=== PATIENT | female | born 1960 | race Caucasian/White ===

== ENCOUNTER 2017-02-15 00:05 | Emergency (ER) | payer OTHER ==
[2017-02-15 01:27] LABS: Hematocrit 41 % (35-47); Hemoglobin 13.6 g/dl (12.0-16.0); Mean Corpuscular HGB Conc 33 g/dl (31-36); Mean Corpuscular Hemoglobin 32 pg (27-31); Mean Corpuscular Volume 97 fL (80-97); Mean Platelet Volume 8 um3 (7.4-10.4); Red Blood Count 4.23 10^6/ul (4.0-5.4); Red Cell Distribution Width 15 % (10.5-15); White Blood Count 12.4 10^3/ul (3.5-10.8)
[2017-02-15 01:46] LABS: Albumin 4.2 g/dL (3.2-5.2); BUN/Creatinine Ratio 17.5 (8-20); Calcium 9.5 mg/dL (8.6-10.3); EGFR African American 95.4 (>60); EGFR Non-African American 74.2 (>60); Globulin 2.9 g/dL (2-4); Potassium 3.7 mmol/L (3.5-5.0); Total Bilirubin 0.3 mg/dL (0.2-1.0); Total Protein 7.1 g/dL (6.4-8.9)
[2017-02-15] MEDS ORDERED: Morphine INJ* 4 MG/ML 1 ML SYRINGE IV ONE (01:49)
[2017-02-15] MEDS ORDERED: Ketorolac INJ* 30 MG/ML 1 ML VIAL ONE (02:10)
[2017-02-15] MEDS ORDERED: HYDROmorphone* 1 MG/ML 1 ML SYR IV SLOW PU ONE (02:18)
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
[2017-02-15 05:11] VITALS: BP 109/64
--- NOTE | 2017-02-15 09:40 | RAD ---
INDICATION: Post reduction and splinting COMPARISON: Same day radiograph the left wrist acquired at 0042 hours TECHNIQUE: 3 views left wrist acquired at 0312 hours. REPORT: Evaluation is obscured by the patient's overlying splint. There is a displaced and impacted fracture of the distal left radius. On the lateral view the distal fracture fragment is displaced one bone width dorsal relative to the shaft of the radius. The remaining visualized bones appear to be intact and appropriately aligned IMPRESSION: Interval splinting of a displaced radial fracture as described above.
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
== END 2017-02-15 05:45 | disposition home or self-care (01) ==
LOC: ED 00:05
DX: R60.9 Edema, unspecified (principal); S52.502A Unspecified fracture of the lower end of left radius, initial encounter for closed fracture; W23.0XXA Caught, crushed, jammed, or pinched between moving objects, initial encounter; Y93.89 Activity, other specified; Y92.9 Unspecified place or not applicable
CPT/HCPCS: 36415; 80053; 85025; 99282; J1170; J1885; J2270

== ENCOUNTER 2017-02-23 08:41 | Day surgery (SDC) | payer OTHER ==
[~2017-02-23 08:41] MED LIST: Buffered Lidocaine 0.9% SYRIN* 5 ML/SYR SYRINGE INTRADERM ONE; Dexamethasone IV* 4 MG/ML 1 ML (4 MG) IV SLOW PU ONE; Famotidine IV* 10 MG/ML 2 ML (20 mg) IV ONE
[2017-02-23] MEDS ORDERED: Famotidine IV* 10 MG/ML 2 ML (20 mg) ONE (09:01)
[2017-02-23] MEDS ORDERED: Dexamethasone IV* 4 MG/ML 1 ML (4 MG) ONE (09:01)
[2017-02-23] MEDS ORDERED: Buffered Lidocaine 0.9% SYRIN* 5 ML/SYR SYRINGE ONE (09:01)
[2017-02-23] MEDS ORDERED: Clindamycin 900 MG IVPREMIX(* 900 MG/50 ML SDV IV ONE (09:01)
[2017-02-23] MEDS ORDERED: Bupivacaine 0.25% SDV* 30 ML ONE (12:18)
[2017-02-23] MEDS ORDERED: Propofol* 10 MG/ML 20 ML BTL IV PUSH ONE (12:45)
[2017-02-23] MEDS ORDERED: Lidocaine 2% PF * 5 ML VIAL ONE (12:45)
[2017-02-23] MEDS ORDERED: fentaNYL* 50 MCG/ML 2 ML VIAL (100 MCG VIAL) ONE ×2 (12:47→13:32)
[2017-02-23] MEDS ORDERED: Midazolam* 1 MG/ML 2 ML VIAL (2 MG) ONE (12:47)
[2017-02-23] MEDS ORDERED: KETAMINE HCL* 50 MG/ML 10 ML VIAL ONE (12:47)
[2017-02-23] MEDS ORDERED: fentaNYL* 50 MCG/ML 2 ML VIAL (100 MCG VIAL) IV PRN (12:49)
[2017-02-23] MEDS ORDERED: oxyCODONE/Acetamin 5/325 MG* TAB PO PRN (12:49)
[2017-02-23] MEDS ORDERED: PROCHLORPERAZINE INJ 5 MG/ML 2 ML VIAL IV PRN (12:49)
[2017-02-23] MEDS ORDERED: HYDROcodone/ACETAMIN 5-325 MG* 1 TAB PO PRN (12:49)
[2017-02-23] MEDS ORDERED: Ketorolac INJ* 30 MG/ML 1 ML VIAL ONE (13:05)
[2017-02-23] MEDS ORDERED: Phenylephrine IV* 40 MCG/ML 10 ML SYRINGE ONE (13:20)
[2017-02-23] MEDS ORDERED: Ondansetron INJ* 2 MG/ML VIAL ONE (13:40)
[2017-02-23] MEDS ORDERED: Labetalol IV* 5 MG/ML 20 ML VIAL ONE (13:42)
[2017-02-23] MEDS ORDERED: HYDROcodone/ACETAMIN 5-325 MG* 1 TAB ONE (15:24)
[2017-02-23 15:54] VITALS: BP 118/72
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
--- NOTE | 2017-02-24 20:24 | RAD ---
CPT II Codes: 6045F INDICATION: Left wrist ORIF TECHNIQUE: Intraoperative fluoroscopy was provided during ORIF of a fracture left radius. FINDINGS: 4 spot films depict application of a plate and screw fixator along the palmar margin of the distal left radius fracture.. Fluoroscopy time: 1.18 seconds IMPRESSION: As above.
--- NOTE | 2017-03-07 04:19 | OP ---
OPERATIVE NOTE:* ADDENDUM: Surgery on the left distal radius and not on the right. Otherwise, the operative note is correct. [id number]/[facility] #: [id number] MTDD
== END 2017-02-23 15:51 | disposition home or self-care (01) ==
LOC: OREAST 08:41
PROVIDERS: ATTEND Orthopaedic Surgery Hand Surgery
DX: S52.571A Other intraarticular fracture of lower end of right radius, initial encounter for closed fracture (principal); J45.909 Unspecified asthma, uncomplicated; F17.210 Nicotine dependence, cigarettes, uncomplicated; M06.9 Rheumatoid arthritis, unspecified; V28.4XXA Motorcycle driver injured in noncollision transport accident in traffic accident, initial encounter; Y92.410 Unspecified street and highway as the place of occurrence of the external cause
CPT/HCPCS: 76000; C1713; C1776; J1100; J1885; J2250; J2405; J2704; J3010

== ENCOUNTER 2018-01-16 16:56 | Emergency (ER) | payer OTHER ==
[2018-01-16 17:11] VITALS: BP 148/89
--- OUTSIDE RECORDS SUMMARY | 2018-01-16 17:33 | XMS REPORT ---
:1960 External Reference #:[id number] Author Organization [email or web address] Address [address] [place] [address] [place] [address] Phone [phone] Care Team Providers Name Role Phone Pattie Nuñez MD Primary Care Physician Unavailable Payers Type Date Identification Numbers Payment Provider Subscriber Commercial Policy Number: [id number] Edinnasim Fajardo Group Number: [id number] PayID: [id number] [place] [address] Problems Date Description Provider Status Onset: 02/17/2017 Closed fracture of distal end of Kai Stapleton MD Active radius Onset: 06/16/2017 Low back pain Kai Stapleton MD Active Onset: 06/16/2017 Lumbar radiculopathy Kai Stapleton MD Active Onset: 07/22/2017 Lumbosacral spondylosis without Ayan Gray MD Active myelopathy Onset: 07/22/2017 Thoracic and lumbosacral neuritis Ayan Gray MD Active Family History Date Family Member(s) Problem(s) Comments General Diabetes General Cancer General Arthritis General Arthritis, Osteo Mother Osteoporosis Social History Type Date Description Comments Lives With Alone Occupation Unemployed ETOH Use Drinks Alcoholic Beverages Rarely Smoking Patient has never smoked Recreational Drug Use Regularly uses Marijuana Daily Caffeine Consumes on average 5 cups of regular coffee per day Exercise Type/Frequency Exercises regularly Allergies, Adverse Reactions, Alerts Date Description Reaction Status Severity Comments 05/02/2014 Penicillin active Medications Medication Date Status Form Strength Qnty SIG Indications Ordering Provider Vitamin D3 10/14/ Active Tablets 1000Unit 30tab Take One Flynn 2016 s Tablet Daily Charanjit, M.D. Folic Acid 07/10/ Active Tablets 1mg 90tab take one M05.79 2015 s capsule/table Charanjit, t daily by M.D. mouth D3-1000 07/10/ Active Tablets 1000Unit 90tab take one 2015 s capsule/table Charanjit, t daily by M.D. mouth [id number] 07/10/ Active Chewtabs 1mg 90uni take one 2015 ts capsule/table Charanjit, t daily M.D. sublingually Methotrexate 07/10/ Active Tablets 2.5mg 90tab take 4 M05.79 2015 s tablets by Charanjit, mouth once M.D. weekly Advair Diskus / Active Aerosol 100-50mcg use one Unknown 0000 /Dose inhalation two times a day Claritin-D 24 / Active Tablets ER 10-240mg 1 by mouth Unknown Hour 0000 24HR every day Prevacid / Active Capsules 15mg 1 by mouth Unknown 0000 DR every day Prozac / Active Capsules 40mg take two Unknown 0000 capsules by mouth every day Estroven / Active Capsules Unknown Multi-Symptom 0000 Menopause Relief Maximum Strength Hydrocodone-Ac 02/23/ Hx Tablets 5-325mg 30tab 1 or 2 tabs Kai etaminophen 2017 - s by mouth Stapleton, 09/28/ every 6-8 MD 2018 hours as needed for pain Prevacid /00/ Hx Unknown - 2015 Claritin /00/ Hx Unknown - 2015 Prozac / Hx Unknown - 2015 Advair HFA / Hx Unknown - 2015 Medications Administered in Office Medication Date Status Form Strength Qnty SIG Indications Ordering Provider Triamcinolone 12/29/ Administered Injection Flynn (Kenalog) Gus Donohue M.D. Depomedrol 40MG 07/24/ Administered Injection Marely Juarez M.D. Vital Signs Date Vital Result Comment 12/29/2017 Height 61.5 inches 5'1.50" Weight 171.50 lb Heart Rate 88 /min BP Systolic 118 mmHg BP Diastolic 80 mmHg Pain Level 8 O2 % BldC Oximetry 98 % BMI (Body Mass Index) 31.9 kg/m2 10/09/2017 Height 61.5 inches 5'1.50" Heart Rate 67 /min BP Systolic 112 mmHg BP Diastolic 68 mmHg Respiratory Rate 16 /min Body Temperature 98.0 F Pain Level 1 09/28/2017 Height 61.5 inches 5'1.50" Weight 171.00 lb Heart Rate 81 /min BP Systolic Sitting 142 mmHg BP Diastolic Sitting 95 mmHg Respiratory Rate 14 /min Pain Level 4 BMI (Body Mass Index) 31.8 kg/m2 07/22/2017 Height 61.5 inches 5'1.50" Weight 160.00 lb Heart Rate 82 /min BP Systolic Sitting 140 mmHg BP Diastolic Sitting 80 mmHg Pain Level 2 BMI (Body Mass Index) 29.7 kg/m2 06/30/2017 Height 61.5 inches 5'1.50" Weight 160.00 lb Heart Rate 80 /min BP Systolic Sitting 134 mmHg BP Diastolic Sitting 78 mmHg Respiratory Rate 14 /min Pain Level 6 BMI (Body Mass Index) 29.7 kg/m2 06/22/2017 Height 61.5 inches 5'1.50" Weight 160.00 lb Heart Rate 76 /min BP Systolic Sitting 126 mmHg BP Diastolic Sitting 72 mmHg Pain Level 6 BMI (Body Mass Index) 29.7 kg/m2 06/16/2017 Height 61.5 inches 5'1.50" Weight 155.00 lb Heart Rate 74 /min Respiratory Rate 16 /min Body Temperature 98.1 F Pain Level 4 BMI (Body Mass Index) 28.8 kg/m2 04/15/2017 Height 61.5 inches 5'1.50" Weight 155.00 lb BP Systolic 126 mmHg BP Diastolic 74 mmHg Body Temperature 97.4 F Pain Level 4 BMI (Body Mass Index) 28.8 kg/m2 03/30/2017 Height 61.5 inches 5'1.50" Weight 162.38 lb Heart Rate 64 /min BP Systolic Sitting 110 mmHg BP Diastolic Sitting 70 mmHg Respiratory Rate 14 /min Pain Level 3 BMI (Body Mass Index) 30.2 kg/m2 03/20/2017 Heart Rate 60 /min BP Systolic Sitting 130 mmHg BP Diastolic Sitting 80 mmHg Body Temperature 97.1 F Pain Level 5 03/06/2017 Height 61.5 inches 5'1.50" Weight 165.00 lb Heart Rate 78 /min BP Systolic 122 mmHg BP Diastolic 80 mmHg Respiratory Rate 17 /min Body Temperature 97.8 F Pain Level 4 BMI (Body Mass Index) 30.7 kg/m2 02/17/2017 Height 61.5 inches 5'1.50" Weight 165.00 lb BP Systolic 120 mmHg BP Diastolic 88 mmHg Body Temperature 96.9 F Pain Level 7 BMI (Body Mass Index) 30.7 kg/m2 11/27/2016 Height 61.5 inches 5'1.50" Weight 163.25 lb Heart Rate 80 /min BP Systolic Sitting 140 mmHg BP Diastolic Sitting 80 mmHg Respiratory Rate 14 /min Pain Level 4 BMI (Body Mass Index) 30.3 kg/m2 08/13/2016 Height 61.5 inches 5'1.50" Weight 164.00 lb Heart Rate 84 /min BP Systolic Sitting 100 mmHg BP Diastolic Sitting 70 mmHg Respiratory Rate 14 /min Body Temperature 96.5 F Pain Level 4 BMI (Body Mass Index) 30.5 kg/m2 07/24/2016 Height 61.5 inches 5'1.50" Weight 165.00 lb Heart Rate 83 /min BP Systolic 107 mmHg BP Diastolic 74 mmHg BMI (Body Mass Index) 30.7 kg/m2 07/10/2016 Height 63 inches 5'3" Weight 165.00 lb Heart Rate 80 /min BP Systolic Sitting 110 mmHg BP Diastolic Sitting 60 mmHg Respiratory Rate 14 /min Body Temperature 96.4 F Pain Level 7 BMI (Body Mass Index) 29.2 kg/m2 05/22/2016 Height 63 inches 5'3" Weight 164.00 lb Heart Rate 80 /min BP Systolic Sitting 120 mmHg BP Diastolic Sitting 70 mmHg Respiratory Rate 14 /min Body Temperature 96.7 F Pain Level 8 BMI (Body Mass Index) 29.0 kg/m2 05/02/2014 Height 63 inches 5'3" Weight 156.00 lb Heart Rate 63 /min BP Systolic 104 mmHg BP Diastolic 63 mmHg BMI (Body Mass Index) 27.6 kg/m2 Results Test Date Test Result H/L Range Note Laboratory test finding 12/29/2017 Erythrocyte Sed Rate 25 mm/Hr 0-30 C Reactive Protein 2.66 mg/L < 5.00 1 CBC Auto Diff 12/29/2017 White Blood Count 9.4 10^3/uL 3.5-10.8 Red Blood Count 4.17 10^6/uL 4.00-5.40 Hemoglobin 13.1 g/dL 12.0-16.0 Hematocrit 40 % 35-47 Mean Corpuscular Volume 95 fL 80-97 Mean Corpuscular Hemoglobin 32 pg High 27-31 Mean Corpuscular HGB Conc 33 g/dL 31-36 Red Cell Distribution Width 15 % 10.5-15 Platelet Count 293 10^3/uL 150-450 Mean Platelet Volume 7.3 um3 Low 7.4-10.4 Abs Neutrophils 5.8 10^3/uL 1.5-7.7 Abs Lymphocytes 2.7 10^3/uL 1.0-4.8 Abs Monocytes 0.5 10^3/uL 0-0.8 Abs Eosinophils 0.3 10^3/uL 0-0.6 Abs Basophils 0.1 10^3/uL 0-0.2 Abs Nucleated RBC 0 10^3/uL Granulocyte % 61.9 % 38-83 Lymphocyte % 29.2 % 25-47 Monocyte % 4.8 % 0-7 Eosinophil % 3.4 % 0-6 Basophil % 0.7 % 0-2 Nucleated Red Blood Cells % 0 Comp Metabolic Panel 12/29/2017 Sodium 140 mmol/L 139-145 Potassium 4.8 mmol/L 3.5-5.0 Chloride 103 mmol/L 101-111 Co2 Carbon Dioxide 30 mmol/L 22-32 Anion Gap 7 mmol/L 2-11 Glucose 96 mg/dL 70-100 Blood Urea Nitrogen 19 mg/dL 6-24 Creatinine 0.87 mg/dL 0.51-0.95 BUN/Creatinine Ratio 21.8 High 8-20 Calcium 9.4 mg/dL 8.6-10.3 Total Protein 6.4 g/dL 6.4-8.9 Albumin 4.2 g/dL 3.2-5.2 Globulin 2.2 g/dL 2-4 Albumin/Globulin Ratio 1.9 1-3 Total Bilirubin 0.30 mg/dL 0.2-1.0 Alkaline Phosphatase 58 U/L 34-104 Alt 22 U/L 7-52 Ast 23 U/L 13-39 Egfr Non- 67.4 >60 Egfr 86.6 >60 2 Laboratory test finding 09/28/2017 Erythrocyte Sed Rate 25 mm/Hr 0-30 C Reactive Protein 2.80 mg/L < 5.00 3 CBC Auto Diff 09/28/2017 White Blood Count 10.5 10^3/uL 3.5-10.8 Red Blood Count 4.19 10^6/uL 4.0-5.4 Hemoglobin 13.3 g/dL 12.0-16.0 Hematocrit 40 % 35-47 Mean Corpuscular Volume 95 fL 80-97 Mean Corpuscular Hemoglobin 32 pg High 27-31 Mean Corpuscular HGB Conc 33 g/dL 31-36 Red Cell Distribution Width 15 % 10.5-15 Platelet Count 281 10^3/uL 150-450 Mean Platelet Volume 7 um3 Low 7.4-10.4 Abs Neutrophils 7.1 10^3/uL 1.5-7.7 Abs Lymphocytes 2.5 10^3/uL 1.0-4.8 Abs Monocytes 0.5 10^3/uL 0-0.8 Abs Eosinophils 0.3 10^3/uL 0-0.6 Abs Basophils 0.1 10^3/uL 0-0.2 Abs Nucleated RBC 0 10^3/uL Granulocyte % 67.7 % 38-83 Lymphocyte % 23.8 % Low 25-47 Monocyte % 4.9 % 0-7 Eosinophil % 2.9 % 0-6 Basophil % 0.7 % 0-2 Nucleated Red Blood Cells % 0 Comp Metabolic Panel 09/28/2017 Sodium 138 mmol/L 133-145 Potassium 4.3 mmol/L 3.5-5.0 Chloride 102 mmol/L 101-111 Co2 Carbon Dioxide 31 mmol/L 22-32 Anion Gap 5 mmol/L 2-11 Glucose 81 mg/dL 70-100 Blood Urea Nitrogen 13 mg/dL 6-24 Creatinine 0.73 mg/dL 0.51-0.95 BUN/Creatinine Ratio 17.8 8-20 Calcium 9.4 mg/dL 8.6-10.3 Total Protein 6.5 g/dL 6.4-8.9 Albumin 4.1 g/dL 3.2-5.2 Globulin 2.4 g/dL 2-4 Albumin/Globulin Ratio 1.7 1-3 Total Bilirubin 0.30 mg/dL 0.2-1.0 Alkaline Phosphatase 57 U/L 34-104 Alt 13 U/L 7-52 Ast 16 U/L 13-39 Egfr Non- 82.5 >60 Egfr 106.1 >60 4 Laboratory test finding 07/07/2017 Erythrocyte Sed Rate 22 mm/Hr 0-30 C Reactive Protein 3.58 mg/L < 5.00 5 CBC Auto Diff 07/07/2017 White Blood Count 9.4 10^3/uL 3.5-10.8 Red Blood Count 4.10 10^6/uL 4.0-5.4 Hemoglobin 13.0 g/dL 12.0-16.0 Hematocrit 39 % 35-47 Mean Corpuscular Volume 95 fL 80-97 Mean Corpuscular Hemoglobin 32 pg High 27-31 Mean Corpuscular HGB Conc 33 g/dL 31-36 Red Cell Distribution Width 15 % 10.5-15 Platelet Count 302 10^3/uL 150-450 Mean Platelet Volume 7 um3 Low 7.4-10.4 Abs Neutrophils 5.3 10^3/uL 1.5-7.7 Abs Lymphocytes 3.0 10^3/uL 1.0-4.8 Abs Monocytes 0.6 10^3/uL 0-0.8 Abs Eosinophils 0.4 10^3/uL 0-0.6 Abs Basophils 0.1 10^3/uL 0-0.2 Abs Nucleated RBC 0.01 10^3/uL Granulocyte % 56.7 % 38-83 Lymphocyte % 31.7 % 25-47 Monocyte % 6.6 % 1-9 Eosinophil % 4.1 % 0-6 Basophil % 0.9 % 0-2 Nucleated Red Blood Cells % 0.1 Comp Metabolic Panel 07/07/2017 Sodium 137 mmol/L 133-145 Potassium 4.3 mmol/L 3.5-5.0 Chloride 102 mmol/L 101-111 Co2 Carbon Dioxide 31 mmol/L 22-32 Anion Gap 4 mmol/L 2-11 Glucose 81 mg/dL 70-100 Blood Urea Nitrogen 16 mg/dL 6-24 Creatinine 0.84 mg/dL 0.51-0.95 BUN/Creatinine Ratio 19.0 8-20 Calcium 9.5 mg/dL 8.6-10.3 Total Protein 6.6 g/dL 6.4-8.9 Albumin 4.4 g/dL 3.2-5.2 Globulin 2.2 g/dL 2-4 Albumin/Globulin Ratio 2.0 1-3 Total Bilirubin 0.30 mg/dL 0.2-1.0 Alkaline Phosphatase 60 U/L 34-104 Alt 13 U/L 7-52 Ast 19 U/L 13-39 Egfr Non- 70.1 >60 Egfr 90.2 >60 6 CBC Auto Diff 02/15/2017 White Blood Count 12.4 10^3/uL High 3.5-10.8 Red Blood Count 4.23 10^6/uL 4.0-5.4 Hemoglobin 13.6 g/dL 12.0-16.0 Hematocrit 41 % 35-47 Mean Corpuscular Volume 97 fL 80-97 Mean Corpuscular Hemoglobin 32 pg High 27-31 Mean Corpuscular HGB Conc 33 g/dL 31-36 Red Cell Distribution Width 15 % 10.5-15 Platelet Count 309 10^3/uL 150-450 Mean Platelet Volume 8 um3 7.4-10.4 Abs Neutrophils 8.9 10^3/uL High 1.5-7.7 Abs Lymphocytes 2.5 10^3/uL 1.0-4.8 Abs Monocytes 0.7 10^3/uL 0-0.8 Abs Eosinophils 0.3 10^3/uL 0-0.6 Abs Basophils 0.1 10^3/uL 0-0.2 Abs Nucleated RBC 0.01 10^3/uL Granulocyte % 71.7 % 38-83 Lymphocyte % 19.9 % Low 25-47 Monocyte % 5.3 % 1-9 Eosinophil % 2.1 % 0-6 Basophil % 1.0 % 0-2 Nucleated Red Blood Cells % 0.1 Comp Metabolic Panel 02/15/2017 Sodium 136 mmol/L 133-145 Potassium 3.7 mmol/L 3.5-5.0 Chloride 103 mmol/L 101-111 Co2 Carbon Dioxide 27 mmol/L 22-32 Anion Gap 6 mmol/L 2-11 Glucose 82 mg/dL 70-100 Blood Urea Nitrogen 14 mg/dL 6-24 Creatinine 0.80 mg/dL 0.51-0.95 BUN/Creatinine Ratio 17.5 8-20 Calcium 9.5 mg/dL 8.6-10.3 Total Protein 7.1 g/dL 6.4-8.9 Albumin 4.2 g/dL 3.2-5.2 Globulin 2.9 g/dL 2-4 Albumin/Globulin Ratio 1.4 1-3 Total Bilirubin 0.30 mg/dL 0.2-1.0 Alkaline Phosphatase 55 U/L 34-104 Alt 10 U/L 7-52 Ast 16 U/L 13-39 Egfr Non- 74.2 >60 Egfr 95.4 >60 7 Laboratory test finding 11/24/2016 C Reactive Protein 2.64 mg/L < 5.00 8 Erythrocyte Sed Rate 23 mm/Hr 0-30 CBC Auto Diff 11/24/2016 White Blood Count 10.0 10^3/uL 3.5-10.8 Red Blood Count 4.30 10^6/uL 4.0-5.4 Hemoglobin 13.6 g/dL 12.0-16.0 Hematocrit 41 % 35-47 Mean Corpuscular Volume 94 fL 80-97 Mean Corpuscular Hemoglobin 32 pg High 27-31 Mean Corpuscular HGB Conc 34 g/dL 31-36 Red Cell Distribution Width 16 % High 10.5-15 Platelet Count 277 10^3/uL 150-450 Mean Platelet Volume 8 um3 7.4-10.4 Abs Neutrophils 6.5 10^3/uL 1.5-7.7 Abs Lymphocytes 2.5 10^3/uL 1.0-4.8 Abs Monocytes 0.5 10^3/uL 0-0.8 Abs Eosinophils 0.3 10^3/uL 0-0.6 Abs Basophils 0.1 10^3/uL 0-0.2 Abs Nucleated RBC 0 10^3/uL Granulocyte % 65.3 % 38-83 Lymphocyte % 24.9 % Low 25-47 Monocyte % 5.3 % 1-9 Eosinophil % 3.4 % 0-6 Basophil % 1.1 % 0-2 Nucleated Red Blood Cells % 0 Comp Metabolic Panel 11/24/2016 Sodium 138 mmol/L 133-145 Potassium 4.7 mmol/L 3.5-5.0 Chloride 103 mmol/L 101-111 Co2 Carbon Dioxide 30 mmol/L 22-32 Anion Gap 5 mmol/L 2-11 Glucose 94 mg/dL 70-100 Blood Urea Nitrogen 13 mg/dL 6-24 Creatinine 0.77 mg/dL 0.51-0.95 BUN/Creatinine Ratio 16.9 8-20 Calcium 9.1 mg/dL 8.6-10.3 Total Protein 6.6 g/dL 6.4-8.9 Albumin 4.2 g/dL 3.2-5.2 Globulin 2.4 g/dL 2-4 Albumin/Globulin Ratio 1.8 1-3 Total Bilirubin 0.30 mg/dL 0.2-1.0 Alkaline Phosphatase 53 U/L 34-104 Alt 11 U/L 7-52 Ast 16 U/L 13-39 Egfr Non- 77.8 >60 Egfr 100.1 >60 9 Laboratory test finding 08/11/2016 C Reactive Protein 2.82 mg/L < 5.00 10 Erythrocyte Sed Rate 22 mm/Hr 0-30 CBC Auto Diff 08/11/2016 White Blood Count 10.1 10^3/uL 3.5-10.8 Red Blood Count 4.59 10^6/uL 4.0-5.4 Hemoglobin 13.8 g/dL 12.0-16.0 Hematocrit 42 % 35-47 Mean Corpuscular Volume 93 fL 80-97 Mean Corpuscular Hemoglobin 30 pg 27-31 Mean Corpuscular HGB Conc 33 g/dL 31-36 Red Cell Distribution Width 14 % 10.5-15 Platelet Count 288 10^3/uL 150-450 Mean Platelet Volume 7 um3 Low 7.4-10.4 Abs Neutrophils 6.0 10^3/uL 1.5-7.7 Abs Lymphocytes 3.2 10^3/uL 1.0-4.8 Abs Monocytes 0.5 10^3/uL 0-0.8 Abs Eosinophils 0.3 10^3/uL 0-0.6 Abs Basophils 0.1 10^3/uL 0-0.2 Abs Nucleated RBC 0 10^3/uL Granulocyte % 59.3 % 38-83 Lymphocyte % 31.6 % 25-47 Monocyte % 4.8 % 1-9 Eosinophil % 3.2 % 0-6 Basophil % 1.1 % 0-2 Nucleated Red Blood Cells % 0 Comp Metabolic Panel 08/11/2016 Sodium 139 mmol/L 133-145 Potassium 4.2 mmol/L 3.5-5.0 Chloride 103 mmol/L 101-111 Co2 Carbon Dioxide 29 mmol/L 22-32 Anion Gap 7 mmol/L 2-11 Glucose 86 mg/dL 70-100 Blood Urea Nitrogen 11 mg/dL 6-24 Creatinine 0.80 mg/dL 0.51-0.95 BUN/Creatinine Ratio 13.8 8-20 Calcium 9.2 mg/dL 8.6-10.3 Total Protein 6.7 g/dL 6.4-8.9 Albumin 4.2 g/dL 3.2-5.2 Globulin 2.5 g/dL 2-4 Albumin/Globulin Ratio 1.7 1-3 Total Bilirubin 0.30 mg/dL 0.2-1.0 Alkaline Phosphatase 56 U/L 34-104 Alt 11 U/L 7-52 Ast 15 U/L 13-39 Egfr Non- 74.5 >60 Egfr 95.8 >60 11 Laboratory test 05/22/2016 C Reactive Protein 6.20 mg/L High < 5.00 12 finding Hepatitis Acute Panel 05/22/2016 Hepatitis C Antibody Nonreactive Nonreactive 13 Hepatitis A AB Igm Nonreactive Nonreactive 14 Hepatitis B Core AB Igm Nonreactive Nonreactive 15 Hepatitis B Surface Ag Nonreactive Nonreactive 16 Laboratory test finding 05/22/2016 Rheumatoid Factor 37 IU/mL <15 17 Cyclic Citrullinated Pep Igg <15.6 U 18 Hla B27 05/22/2016 Hla B27 Negative 19 Hla B27 Interp See Comment 20 Celiac Panel 05/22/2016 Tissue Transglutaminase IgA Ab <1.2 U/mL 21 Immunoglobulin A 256 mg/dL 61 - 356 Celiac Interpretation See Comment 22 Laboratory test finding 05/22/2016 Creatine Kinase(CK) 47 U/L 10-223 23 Anca AB Ser If 05/22/2016 C-Anca Negative Negative P-Anca Negative Negative 24 Vitamin D 1,25 And Vitamin 05/22/2016 Vitamin D Total 25(Oh) 26.6 ng/mL Low 30-50 25 D,2 Vitamin D, 1,25 Dihydroxy 61 pg/mL 18-78 26 Vitamin B12 And Folate Serum 05/22/2016 Vitamin B12 265 pg/mL 180-914 27 Folic Acid (Folate) > 20.00 ng/mL >3.99 28 1 Acute inflammation: >10.00 2 Because ethnic data is not always readily available, this report includes an eGFR for both -Americans and non- Americans. The National Kidney Disease Education Program (NKDEP) does not endorse the use of the MDRD equation for patients that are not between the ages of 18 and 70, are , have extremes of body size, muscle mass, or nutritional status, or are non- or non-. According to the National Kidney Foundation, irrespective of diagnosis, the stage of the disease is based on the level of kidney function: Stage Description GFR(mL/min/1.73 m(2)) 1 Kidney damage with normal or decreased GFR 90 2 Kidney damage with mild decrease in GFR 60-89 3 Moderate decrease in GFR 30-59 4 Severe decrease in GFR 15-29 5 Kidney failure <15 (or dialysis) 3 Acute inflammation: >10.00 4 Because ethnic data is not always readily available, this report includes an eGFR for both -Americans and non- Americans. The National Kidney Disease Education Program (NKDEP) does not endorse the use of the MDRD equation for patients that are not between the ages of 18 and 70, are , have extremes of body size, muscle mass, or nutritional status, or are non- or non-. According to the National Kidney Foundation, irrespective of diagnosis, the stage of the disease is based on the level of kidney function: Stage Description GFR(mL/min/1.73 m(2)) 1 Kidney damage with normal or decreased GFR 90 2 Kidney damage with mild decrease in GFR 60-89 3 Moderate decrease in GFR 30-59 4 Severe decrease in GFR 15-29 5 Kidney failure <15 (or dialysis) 5 Acute inflammation: >10.00 6 Because ethnic data is not always readily available, this report includes an eGFR for both -Americans and non- Americans. The National Kidney Disease Education Program (NKDEP) does not endorse the use of the MDRD equation for patients that are not between the ages of 18 and 70, are , have extremes of body size, muscle mass, or nutritional status, or are non- or non-. According to the National Kidney Foundation, irrespective of diagnosis, the stage of the disease is based on the level of kidney function: Stage Description GFR(mL/min/1.73 m(2)) 1 Kidney damage with normal or decreased GFR 90 2 Kidney damage with mild decrease in GFR 60-89 3 Moderate decrease in GFR 30-59 4 Severe decrease in GFR 15-29 5 Kidney failure <15 (or dialysis) 7 Because ethnic data is not always readily available, this report includes an eGFR for both -Americans and non- Americans. The National Kidney Disease Education Program (NKDEP) does not endorse the use of the MDRD equation for patients that are not between the ages of 18 and 70, are , have extremes of body size, muscle mass, or nutritional status, or are non- or non-. According to the National Kidney Foundation, irrespective of diagnosis, the stage of the disease is based on the level of kidney function: Stage Description GFR(mL/min/1.73 m(2)) 1 Kidney damage with normal or decreased GFR 90 2 Kidney damage with mild decrease in GFR 60-89 3 Moderate decrease in GFR 30-59 4 Severe decrease in GFR 15-29 5 Kidney failure <15 (or dialysis) 8 Acute inflammation: >10.00 9 Because ethnic data is not always readily available, this report includes an eGFR for both -Americans and non- Americans. The National Kidney Disease Education Program (NKDEP) does not endorse the use of the MDRD equation for patients that are not between the ages of 18 and 70, are , have extremes of body size, muscle mass, or nutritional status, or are non- or non-. According to the National Kidney Foundation, irrespective of diagnosis, the stage of the disease is based on the level of kidney function: Stage Description GFR(mL/min/1.73 m(2)) 1 Kidney damage with normal or decreased GFR 90 2 Kidney damage with mild decrease in GFR 60-89 3 Moderate decrease in GFR 30-59 4 Severe decrease in GFR 15-29 5 Kidney failure <15 (or dialysis) 10 Acute inflammation: >10.00 11 Because ethnic data is not always readily available, this report includes an eGFR for both -Americans and non- Americans. The National Kidney Disease Education Program (NKDEP) does not endorse the use of the MDRD equation for patients that are not between the ages of 18 and 70, are , have extremes of body size, muscle mass, or nutritional status, or are non- or non-. According to the National Kidney Foundation, irrespective of diagnosis, the stage of the disease is based on the level of kidney function: Stage Description GFR(mL/min/1.73 m(2)) 1 Kidney damage with normal or decreased GFR 90 2 Kidney damage with mild decrease in GFR 60-89 3 Moderate decrease in GFR 30-59 4 Severe decrease in GFR 15-29 5 Kidney failure <15 (or dialysis) 12 Acute inflammation: >10.00 13 Please check labs this week 14 Please check labs this week 15 Please check labs this week 16 Please check labs this week 17 Test Performed by: [place] [address] C[employer] Oven Attendant: Georgi Braden II, M.D., Ph.D. 18 REFERENCE VALUE <20.0 (Negative) Test Performed by: [place] [address] [employer] Attendant: Georgi Braden II, M.D., Ph.D. 19 REFERENCE VALUE Not Applicable 20 RESULT: HLA-B27 antigen was not detected. ADDITIONAL INFORMATION Method: Flow Cytometry Performing Laboratory CLIA# [id number] Test Performed by: [place] [address] Curing Oven Attendant: Georgi Braden II, M.D., Ph.D. 21 REFERENCE VALUE <4.0 (Negative) Test Performed by: [place] [address] [employer] Oven Attendant: Georgi Braden II, M.D., Ph.D. 22 Negative serology. Celiac disease unlikely. However, approximately 10% of patients with celiac disease are seronegative. Also, patients who are already adhering to a gluten-free diet may be seronegative. If celiac disease is highly clinically suspected, consider HLA-DQ typing. Test Performed by: [place] [address] Curing Oven Attendant: Georgi Braden II, M.D., Ph.D. 23 Please check labs this week 24 Negative for cANCA and pANCA patterns by immunofluorescence. ADDITIONAL INFORMATION This test was developed and its performance characteristics determined by [facility] in a manner consistent with CLIA requirements. This test has not been cleared or approved by the U.S. Food and Drug Administration. Test Performed by: [facility] [address] Curing Oven Attendant: Georgi Braden II, M.D., Ph.D. 25 Please check labs this week 26 ADDITIONAL INFORMATION This test was developed and its performance characteristics determined by [facility] in a manner consistent with CLIA requirements. This test has not been cleared or approved by the U.S. Food and Drug Administration. Test Performed by: [facility] [place] [id number] Curing Oven Attendant: Georgi Braden II, M.D., Ph.D. 27 Normal Range 180 to 914 Indeterminate Range 145 to 180 Deficient Range <145 28 Please check labs this week Procedures Date CPT Code Description Status 12/29/2017 21467 Admin Of Inj Completed 03/06/2017 48444 Short Arm Cast Application Completed 02/23/2017 64064 Open TX Distal Radial Intra-Articular FX W Fixation Of Completed 3 Or More 02/23/2017 65199 Open TX Distal Radial Intra-Articular FX W Fixation Of Completed 3 Or More 07/24/2016 55142 Inject Tendon Sheath Or Ligament Aponeurosis Eg Plantar Completed Fascia 03/21/2015 Bone Mineral Density Test Completed 05/02/2014 06007 Closed Treatment Radial Head Or Neck FX W/O Completed Manipulation Encounters Type Date Location Provider CPT E/M Dx Office Visit 10/09/2017 [facility] [place] [address] S52.502D 2:00p C.M.A. Office Visit 09/28/2017 [facility] [place] Donohue, [address] M05.79 2:40p Of [facility] Muñoz Z79.899 Office Visit 07/22/2017 2:00p [facility] [place] [address] M47.26 Of [facility] Gray MD M51.16 M54.5 Office Visit 06/30/2017 2:40p [facility] [place] Donohue 35514 M05.79 Of [facility] Muñoz M54.16 Z79.899 Office Visit 06/22/2017 3:00p [facility] [place] [address]771 M54.5 Of [facility] Gray MD M54.16 Office Visit 06/16/2017 2:00p [place] [address] S52.502D Of [place] M05.79 M54.5 M54.16 Office Visit 03/30/2017 3:00p [facility] [place] Donoh[place] 20887 M05.79 Of [facility] Mu[facility]oz Z79.899 M79.1 M47.812 Office Visit 02/17/2017 2:15p [facility] [address] S52.502A Kennedy SHAH Office Visit 11/27/2016 3:20p [facility] Flynn Donohue 22810 M05.79 Of [place] Muñoz Z79.899 M79.1 Office Visit 08/13/2016 1:40p [facility] Flynn Donohue 95564 M05.79 Of [place] Muñoz Z79.899 M79.1 M47.812 Office Visit 07/24/2016 1:30p [facility] 79610 M65.4 Kennedy Muñoz Office Visit 07/10/2016 3:20p [facility] Flynn Donohue M.D. 84439 M05.79 Of Miller M25.551 M79.1 M25.531 M47.812 Office Visit 05/22/2016 1:00p [facility] 85240 R76.0 Miller Muñoz M25.551 M54.5 M54.2 M79.1 R20.8 L13.0 Office Visit 05/02/2014 1:15p [facility] Alfredo M.D. 90502 813.03 C.MAngie 813.05 Plan of Care Future Appointment(s):03/31/2018 1:40 pm - Flynn Donohue M.D. at [facility]12/29/2017 - Flynn Donohue M.D.M05.79 Rheu arthritis w rheu factor mult site w/o org/sys involvFollow up:She has scarring over the left volar wrist which is improved from a prior fiwailQ79.899 Other retirement ( current) drug fmmtbzqZ22.26 Other spondylosis with radiculopathy, lumbar kixuorY46.551 Pain in right hipNew Therapy:Physical TherapyFollow up:Follow up in 2 or 3 months or sooner if needed
--- NOTE | 2018-01-16 22:22 | ED ---
Eusebio Barnett Natalie, scribed for Chuy Rincon MD on 01/16/18 at 1740 . Skin Complaint - HPI Summary HPI Summary: The patient is a 57 y/o F presenting to [facility] c/o erythematous poison sanjuana rash that started two days ago. The rash started out as two small spots on her abdomen, but has since spread all over the left side of her chest, axilla, and upper arm. She states that the rash is itchy but not painful. She spoke to her doctor, who gave her a cream, which did not help as it usually does. She was then prescribed an 11-day course of Prednisone, which she started yesterday. She has also used distilled white vinegar and ice for the itching and pain to much relief. She denies fever. - History of Current Complaint Chief Complaint: EDRashSkinAbscess Time Seen by Provider: 01/16/18 17:07 Stated Complaint: RASH Hx Obtained From: Patient Onset/Duration: Started Days Ago, Still Present Skin Exposure Onset/Duration: Days Ago Timing: Constant, Lasting Days Onset Severity: Mild Current Severity: Moderate Pain Intensity: 0 Pain Scale Used: 0-10 Numeric Skin Location: Chest, Arm Character: Redness Aggravating Symptom(s): Nothing Alleviating Symptom(s): Other: - itching cream, Prednisone, white vinegar, ice Associated Signs & Symptoms: Negative - fever, Rash - Allergy/Home Medications Allergies/Adverse Reactions: Allergies Allergy/AdvReac Type Severity Reaction Status Date / Time MS Penicillins [PCN] Allergy Intermediate Dizziness Verified 07/01/17 16:12 PMH/Surg Hx/FS Hx/Imm Hx Endocrine/Hematology History: Reports: Hx Anemia - maybe-occassionally Denies: Hx Diabetes Cardiovascular History: Denies: Hx Hypertension, Hx Pacemaker/ICD Respiratory History: Reports: Hx Asthma GI History: Reports: Hx Gastroesophageal Reflux Disease, Hx Hiatal Hernia Musculoskeletal History: Reports: Hx Arthritis - rheumatoid, Hx Bursitis, Hx Scoliosis, Hx Tendonitis Sensory History: Reports: Hx Contacts or Glasses - to read Denies: Hx Cataracts, Hx Glaucoma, Hx Hearing Aid Opthamlomology History: Reports: Hx Contacts or Glasses - to read Denies: Hx Cataracts, Hx Glaucoma Neurological History: Reports: Other Neuro Impairments/Disorders - HX OF BACK FX THAT WAS UNFOUNDED A CHILD, SPORTS RELATED INJURY AT THAT Psychiatric History: Reports: Hx Anxiety, Hx Depression Denies: Hx Panic Disorder - Cancer History Hx Chemotherapy: No - Surgical History Surgery Procedure, Year, and Place: 1996 right knee meniscus repair,ORIF LEFT WRIST Hx Anesthesia Reactions: No - Immunization History Date of Tetanus Vaccine: unk Date of Influenza Vaccine: none Infectious Disease History: No Infectious Disease History: Denies: Traveled Outside the [place] in Last 30 Days - Family History Known Family History: Negative: Cardiac Disease, Hypertension, Diabetes - Social History Alcohol Use: Occasionally Substance Use Type: Reports: Marijuana Substance Use Comment - Amount & Last Used: daily Smoking Status (MU): Never Smoked Tobacco Review of Systems Negative: Fever Positive: Rash - poison sanjuana rash on left chest and arm, erythema All Other Systems Reviewed And Are Negative: Yes Physical Exam - Summary Physical Exam Summary: Appearance: The patient is well-nourished in no acute distress and in no acute pain. Skin: The skin is warm and dry and skin color reflects adequate perfusion. There is a confluent rash on the left side of brachia, axilla, and phalanges. HEENT: The head is normocephalic and atraumatic. The pupils are equal and reactive. The conjunctivae are clear and without drainage. Nares are patent and without drainage. Mouth reveals moist mucous membranes and the throat is without erythema and exudate. The external ears are intact. The ear canals are patent and without drainage. The tympanic membranes are intact. Neck: The neck is supple with full range of motion and non-tender. There are no carotid bruits. There is no neck vein distension. Respiratory: Chest is non-tender. Lungs are clear to auscultation and breath sounds are symmetrical and equal. Cardiovascular: Heart is regular rate and rhythm. There is no murmur or rub auscultated. There is no peripheral edema and pulses are symmetrical and equal. Abdomen: The abdomen is soft and non-tender. There are normal bowel sounds heard in all four quadrants and there is no organomegaly palpated. Musculoskeletal: There is no back tenderness noted. Extremities are non-tender with full range of motion. There is good capillary refill. There is no peripheral edema or calf tenderness elicited. Neurological: Patient is alert and oriented to person, place and time. The patient has symmetrical motor strength in all four extremities. Cranial nerves are grossly intact. Deep tendon reflexes are symmetrical and equal in all four extremities. Psychiatric: The patient has an appropriate affect and does not exhibit any anxiety or depression. Triage Information Reviewed: Yes Vital Signs On Initial Exam: Initial Vitals Temp Pulse Resp BP Pulse Ox 98.1 F 95 17 148/89 95 01/16/18 17:08 01/16/18 17:08 01/16/18 17:08 01/16/18 17:08 01/16/18 17:08 Vital Signs Reviewed: Yes Diagnostics - Vital Signs Vital Signs Temp Pulse Resp BP Pulse Ox 01/16/18 17:08 98.1 F 95 17 148/89 95 - Laboratory Lab Statement: Any lab studies that have been ordered have been reviewed, and results considered in the medical decision making process. Course/Dx - Course Course Of Treatment: Ms. Fajardo presented to complaining of a very itchy rash on the left side of her thorax and her left axilla. She has had poison sanjuana many times and a prescription was called in for a tapering dose of prednisone by her PCP. She is to take 4 pills a day for 3 days 3 pills a day for 3 days etc. tapering down. She took 4 pills yesterday and 4 today. She was told to come in and see an M.D. in order for her PCP to prescribe. She was nontoxic and I agree that this looks like poison sanjuana. I think it tapering dose over 12 days is inadequate and I'm going to give her an additional prescription for the 4 pills a day at the beginning of the regimen and allow her to use this taper towards the end. - Diagnoses Provider Diagnoses: Poison sanjuana Discharge - Sign-Out/Discharge Documenting (check all that apply): Discharge/Admit/Transfer - Pt will be discharged home. - Discharge Plan Condition: Stable Disposition: HOME Prescriptions: predniSONE [Prednisone 20 MG TAB] 80 mg PO DAILY #20 tablet Patient Education Materials: Poison Sanjuana (ED) Referrals: Flynn Donohue MD [Primary Care Provider] - 2 Days Additional Instructions: Please take medication as prescribed. Follow up with your primary care provider in 2-3 days. Return to the emergency department for any new or worsening symptoms. - Billing Disposition and Condition Condition: STABLE Disposition: Home The documentation as recorded by the Eusebio avendano Natalie accurately reflects the service I personally performed and the decisions made by Sergey vee Richard L, MD.
== END 2018-01-16 17:35 | disposition home or self-care (01) ==
LOC: ED 16:56
DX: L23.7 Allergic contact dermatitis due to plants, except food (principal); K21.9 Gastro-esophageal reflux disease without esophagitis; J45.909 Unspecified asthma, uncomplicated; M06.9 Rheumatoid arthritis, unspecified
CPT/HCPCS: 99282

== ENCOUNTER 2018-08-24 06:59 | Emergency (ER) | payer MEDICARE, MEDICAID ==
[2018-08-24 08:07] VITALS: BP 159/81
--- NOTE | 2018-08-24 15:40 | ED ---
Upper Extremity Pain - HPI Summary HPI Summary: Patient is a 58-year-old female presenting to the ED with right shoulder pain. She states she's been diagnosed with tendinitis in the past and has had cortisone injections and has been using Aleve. This all with minimal relief. Over the past few days she states she has had pain to the scapular area radiating up into the right side of the neck and down to the ipsilateral arm with intermittent numbness and tingling. She states the area feels better when she presses down on the scapular area, worse with movement. She has tried a TENS unit in the past as well. She is unsure if she has tried muscle relaxers. She denies trying heat. She states she has good follow-ups with her physicians, was unsure if there was something more we could do. - History of Current Complaint Chief Complaint: EDShoulderClavicleInj Stated Complaint: RIGHT SHOULDER PAIN Time Seen by Provider: 08/24/18 07:26 Hx Obtained From: Patient Onset/Duration: Started Hours Ago Timing: Constant Severity Initially: Moderate Severity Currently: Moderate Pain Location: Shoulder Character: Aching Aggravating Factor(s): Movement, Lifting, Flexion, Extension, Internal/External Rotation Alleviating Factor(s): Rest, Ice Associated Signs & Symptoms: Positive: Numbness/Tingling. Negative: Swelling, Redness, Bruising, Diaphoresis, Nausea, Vomiting Related History: Dominant Hand Right - Risk Factors Non-Orthopedic Risk Factor: Negative DVT Risk Factors: Negative Septic Arthritis Risk Factor: Negative Compartment Syndrome Risk Factors: Pain - Allergies/Home Medications Allergies/Adverse Reactions: Allergies Allergy/AdvReac Type Severity Reaction Status Date / Time Penicillins AdvReac Intermediate Dizziness Verified 08/24/18 08:01 PMH/Surg Hx/FS Hx/Imm Hx Previously Healthy: Yes Endocrine/Hematology History: Reports: Hx Anemia - maybe-occassionally Denies: Hx Diabetes Cardiovascular History: Denies: Hx Hypertension, Hx Pacemaker/ICD Respiratory History: Reports: Hx Asthma GI History: Reports: Hx Gastroesophageal Reflux Disease, Hx Hiatal Hernia Musculoskeletal History: Reports: Hx Arthritis - rheumatoid, Hx Rheumatoid Arthritis, Hx Bursitis, Hx Scoliosis, Hx Tendonitis Sensory History: Reports: Hx Contacts or Glasses - to read Denies: Hx Cataracts, Hx Glaucoma, Hx Hearing Aid Opthamlomology History: Reports: Hx Contacts or Glasses - to read Denies: Hx Cataracts, Hx Glaucoma Neurological History: Reports: Other Neuro Impairments/Disorders - HX OF BACK FX THAT WAS UNFOUNDED A CHILD, SPORTS RELATED INJURY AT THAT Psychiatric History: Reports: Hx Anxiety, Hx Depression Denies: Hx Panic Disorder - Cancer History Hx Chemotherapy: No - Surgical History Surgery Procedure, Year, and Place: 1995 right knee meniscus repair,ORIF LEFT WRIST Hx Anesthesia Reactions: No - Immunization History Date of Tetanus Vaccine: unk Date of Influenza Vaccine: none Hx Pertussis Vaccination: No Immunizations Up to Date: Yes Infectious Disease History: No Infectious Disease History: Denies: Traveled Outside the [place] in Last 30 Days - Family History Known Family History: Positive: None Negative: Cardiac Disease, Hypertension, Diabetes - Social History Occupation: Employed Full-time Lives: With Family Alcohol Use: Occasionally Hx Substance Use: No Substance Use Type: Reports: Marijuana Substance Use Comment - Amount & Last Used: daily Smoking Status (MU): Never Smoked Tobacco Review of Systems Constitutional: Negative Negative: Fever, Chills, Fatigue, Skin Diaphoresis Negative: Palpitations, Chest Pain Negative: Shortness Of Breath, Cough Genitourinary: Negative Positive: no symptoms reported, see HPI Positive: Arthralgia, Myalgia Skin: Negative Neurological: Negative All Other Systems Reviewed And Are Negative: Yes Physical Exam Triage Information Reviewed: Yes Vital Signs On Initial Exam: Initial Vitals Temp Pulse Resp BP Pulse Ox 97.3 F 80 20 142/96 95 08/24/18 07:07 08/24/18 07:07 08/24/18 07:07 08/24/18 07:07 08/24/18 07:07 Vital Signs Reviewed: Yes Appearance: Positive: Well-Appearing, Well-Nourished Skin: Positive: Warm, Skin Color Reflects Adequate Perfusion Head/Face: Positive: Normal Head/Face Inspection Eyes: Positive: Normal, VALERIA, Conjunctiva Clear Neck: Positive: Supple, No Lymphadenopathy Respiratory/Lung Sounds: Positive: Clear to Auscultation, Breath Sounds Present Cardiovascular: Positive: RRR, Pulses are Symmetrical in both Upper and Lower Extremities Musculoskeletal: Positive: Pain @ - right shoulder pain Neurological: Positive: Sensory/Motor Intact, Alert, Oriented to Person Place, Time, Speech Normal Psychiatric: Positive: Normal, Affect/Mood Appropriate AVPU Assessment: Alert Diagnostics - Vital Signs Vital Signs Temp Pulse Resp BP Pulse Ox 08/24/18 08:06 97.5 F 63 18 159/81 97 08/24/18 07:07 97.3 F 80 20 142/96 95 - Laboratory Lab Statement: Any lab studies that have been ordered have been reviewed, and results considered in the medical decision making process. Course/Dx - Course Course Of Treatment: I discussed with the patient at length cervical radiculopathy and tendinitis of the shoulder. She does not require a x-ray as this appears to be tendinitis. There is pain to the scapular area radiating to the right side of the neck and down to the arm. The numbness and tingling is intermittent. She denies any color or temperature changes. Denies any injury. I have encouraged heat and gentle stretches. I have encouraged massage. Have given her a prescription for Flexeril as well as prednisone. She is to follow back up with her PCP. She is okay with this plan and discharge. - Diagnoses Differential Diagnosis/HQI/PQRI: Positive: Strain, Sprain Provider Diagnoses: Tendinitis, Cervical radiculopathy Discharge - Sign-Out/Discharge Documenting (check all that apply): Patient Departure Patient Received Moderate/Deep Sedation with Procedure: No - Discharge Plan Condition: Stable Disposition: HOME Prescriptions: Cyclobenzaprine TAB* [Flexeril TAB*] 10 mg PO BID PRN #10 tab PRN Reason: Spasms predniSONE TAB* [Deltasone TAB*] 50 mg PO DAILY #5 tab MDD 1 Patient Education Materials: Cervical Radiculopathy (ED), Tendinitis (ED) Referrals: Flynn Donohue MD [Primary Care Provider] - Additional Instructions: Moist heat to the area as much as possible Do not use ice Gentle stretches throughout the day after heating the area Massage is very important Please follow-up with your PCP possibly regarding further treatments Flexeril up to twice daily Do not drive or taking this medication Prednisone once daily in the morning, you may drive while taking this medication Aleve twice a day 4 days Do not exceed 4 days without taking a 2 day break - Billing Disposition and Condition Condition: STABLE Disposition: Home
== END 2018-08-24 08:06 | disposition home or self-care (01) ==
LOC: ED 06:59
DX: M75.91 Shoulder lesion, unspecified, right shoulder (principal); M54.12 Radiculopathy, cervical region; Z88.0 Allergy status to penicillin
CPT/HCPCS: 99281

== ENCOUNTER 2018-11-10 08:05 | Day surgery (SDC) | payer MEDICARE, MEDICAID ==
[~2018-11-10 08:05] MED LIST changes: -Buffered Lidocaine 0.9% SYRIN* 5 ML/SYR SYRINGE INTRADERM ONE; +Buffered Lidocaine 1% SYRIN* 1 ML/SYRINGE INTRADERM ONE; +Lactated Ringers 1000 ML Bag* 1,000 ML IV SCH
[2018-11-10] MEDS ORDERED: Dexamethasone IV* 4 MG/ML 1 ML (4 MG) ONE (08:19)
[2018-11-10] MEDS ORDERED: Famotidine IV* 10 MG/ML 2 ML (20 mg) ONE (08:19)
[2018-11-10] MEDS ORDERED: ceFAZolin 2 GM in NS PREMIX(*) 2 GM/100 ML BAG IVPB ONE (08:19)
[2018-11-10] MEDS ORDERED: Buffered Lidocaine 1% SYRIN* 1 ML/SYRINGE INTRADERM ONE (08:19)
[2018-11-10] MEDS ORDERED: Ondansetron INJ* 2 MG/ML VIAL ONE (08:57)
[2018-11-10] MEDS ORDERED: Propofol* 10 MG/ML 20 ML BTL ONE (08:57)
[2018-11-10] MEDS ORDERED: Lidocaine 2% PF * 5 ML VIAL ONE (08:57)
[2018-11-10] MEDS ORDERED: fentaNYL* 50 MCG/ML 2 ML VIAL (100 MCG VIAL) ONE ×3 (08:57→10:44)
[2018-11-10] MEDS ORDERED: Midazolam* 1 MG/ML 5 ML VIAL (5 MG) ONE (08:57)
[2018-11-10] MEDS ORDERED: Atracurium* 10 MG/ML 10 ML VIAL ONE (08:57)
[2018-11-10] MEDS ORDERED: Levalbuterol 0.63MG/3ML NEB* UNIT OF USE INH ONE ×2 (09:40→09:41)
[2018-11-10] MEDS ORDERED: ROPIVACAINE 5 MG/ML 30 ML BTL (0.5%) ONE (09:43)
[2018-11-10] MEDS ORDERED: DiMENhydriNATE IV* 50 MG/ML VIAL IV PUSH PRN (10:46)
[2018-11-10] MEDS ORDERED: Naloxone* 0.4 MG/ML 1 ML VIAL IV PRN (10:46)
[2018-11-10] MEDS ORDERED: Ondansetron INJ* 2 MG/ML VIAL IV PRN (10:46)
[2018-11-10] MEDS ORDERED: fentaNYL* 50 MCG/ML 2 ML VIAL (100 MCG VIAL) IV PRN (10:46)
[2018-11-10] MEDS ORDERED: oxyCODONE/Acetamin 5/325 MG* TAB PO PRN (10:46)
[2018-11-10] MEDS ORDERED: HYDROmorphone INJ1* 1 MG/ML SYRINGE IV PRN (10:46)
--- NOTE | 2018-11-10 13:59 | OP ---
OPERATIVE REPORT: DATE OF OPERATION: 11/10/18 - [facility] DATE OF : 62 SURGEON: Erick Sharma MD. ASSISTANTS: STEW Stephens. ANESTHESIOLOGIST: Dr. Garrison. ANESTHESIA: General with interscalene block. PRE-OP DIAGNOSIS: Right shoulder high-grade partial-thickness tear of the rotator cuff with biceps tendinitis. POST-OP DIAGNOSIS: Right shoulder high-grade partial-thickness tear of the rotator cuff with biceps tendinitis. OPERATIVE PROCEDURE: 1. Right shoulder arthroscopy with extensive glenohumeral debridement including biceps tenotomy, debridement of the anterior, posterior, superior labrum. 2. Subacromial decompression acromioplasty. 3. Rotator cuff repair using Regeneten patch. COMPLICATIONS: None. ESTIMATED BLOOD LOSS: Minimal. INDICATIONS: Mame Fajardo is a 58-year-old female with persistent shoulder pain refractory to conservative management. She also has rheumatoid arthritis. She has failed conservative management including physical therapy, anti- inflammatories and has elected to proceed with surgical treatment. MRI of the shoulder was done that demonstrated partial-thickness tearing of the rotator cuff. Risks and benefits of the surgery were discussed at length and included, but are not limited to bleeding, infection; damage to nerves, vessels, surrounding structures; wound nonhealing, persistent pain, need for further surgery, scarring, stiffness, incomplete relief of symptoms, risks of anesthesia. DESCRIPTION OF PROCEDURE: The patient was greeted in the preoperative area by the attending surgeon. Correct extremity was marked and consent was confirmed. The patient underwent interscalene nerve block by the anesthesiologist, after which she was brought back to the operating suite where she was placed in supine position on the operating table. She then underwent general anesthesia and endotracheal intubation, after which she was placed in left lateral decubitus position. An axillary roll was placed. All bony prominences were padded. She was secured with a pegboard. The right shoulder was prepped and draped in the usual sterile fashion beginning with chlorhexidine soap, scrub, alcohol wipe, and a final prep with ChloraPrep. After appropriate surgical pause indicating side, site, procedure, and administration of antibiotics, the standard posterolateral portal was made sharply with an 11-blade. Scope was introduced into the joint and the joint was examined. There were abundant synovitic changes. The biceps had a SLAP tear. The subscap was intact. The undersurface of the supraspinatus had significant high-grade partial-thickness tearing. There was chondrosis particularly in the posterior aspect of the humeral head as well as in the glenoid itself with grade 2 changes, small area of grade 3 change. The anterior portal was made in an outside-in fashion. Shaver was used to debride back the abundant synovitis and fraying of the anterior, posterior, and superior labrum. Biceps was then tenotomized for later tenodesis. The undersurface of the supraspinatus was debrided using the shaver. The inferior recess was intact. Once this portion was complete, all fluid and debris was removed from this portion of the case and attention was directed to the subacromial space. With the scope positioned in subacromial space, lateral portal was made in an outside-in fashion. Shaver was used to debride back the abundant synovitic and thick bursa that was present. Most of this was hyperemic. The shaver and electrocautery device were used to maintain hemostasis at all times. Shaver was used to debride back the bursa. The undersurface of the acromion was skeletonized. This revealed an anterolateral spur that was hooked. The 4-0 oval edilma was then used to do an acromioplasty. Once this was done, all the debris was removed and attention was directed to the rotator cuff. The cuff was probed and found to be intact. The decision was made to use a Regeneten patch to treat this as a rotator cuff repair using a Regeneten patch. The Regeneten patch was brought into the field. Through a separate stab incision, a cannula was placed to facilitate medial anchor placement. Once it was appropriately positioned, medial karthikeyan were placed through the rotator cuff. This helped secure it medially. Then laterally, PEEK karthikeyan were then used to attach to the bone. The patch appeared to be well positioned. The shoulder was taken through gentle range of motion and was found to be intact. The wounds were then copiously irrigated with sterile saline. The portals were closed with 3-0 nylon. Sterile dressings were applied as well as a regular sling. She was awoken from anesthesia and transferred to the PACU in stable condition. POSTOPERATIVE PLAN: She will be nonweightbearing, but she will start range of motion and physical therapy right away. She will be discharged on pain medication. DVT prophylaxis was considered, but deferred due to no previous personal or family history. I will see her back in 10 to 14 days. [id number]/[facility] #: [id number] JOHN
[2018-11-10 14:50] VITALS: BP 119/71
== END 2018-11-10 16:08 | disposition home or self-care (01) ==
LOC: OR 08:05
PROVIDERS: ATTEND Orthopaedic Surgery
DX: M75.111 Incomplete rotator cuff tear or rupture of right shoulder, not specified as traumatic (principal); M75.21 Bicipital tendinitis, right shoulder; M05.79 Rheumatoid arthritis with rheumatoid factor of multiple sites without organ or systems involvement; G89.18 Other acute postprocedural pain; J45.909 Unspecified asthma, uncomplicated; K21.9 Gastro-esophageal reflux disease without esophagitis; F41.8 Other specified anxiety disorders
CPT/HCPCS: C1713; J0690; J1100; J2250; J2405; J2704; J2795; J3010

== ENCOUNTER 2020-08-28 08:00 | Inpatient (IN) ==
[~2020-08-28 08:00] MED LIST changes: +Buffered Lidocaine 1% SYRIN 1 ml INTRADERM ONE; -Buffered Lidocaine 1% SYRIN* 1 ML/SYRINGE INTRADERM ONE; -Dexamethasone IV* 4 MG/ML 1 ML (4 MG) IV SLOW PU ONE; -Famotidine IV* 10 MG/ML 2 ML (20 mg) IV ONE; -Lactated Ringers 1000 ML Bag* 1,000 ML IV SCH; +Lactated Ringers 1000 ml BAG 1,000 ML IV SCH
[2020-08-28] MEDS ORDERED: Buffered Lidocaine 1% SYRIN 1 ml INTRADERM ONE (13:20)
[2020-08-28] MEDS ORDERED: Clindamycin 900 MG/D5W BAG 900 MG/50 ML BAG IVPB ONE (13:20)
[2020-08-28] MEDS ORDERED: Dexamethasone IV 4 MG/ML VIAL 1 ml VIAL ONE (13:49)
[2020-08-28] MEDS ORDERED: fentaNYL 250 mcg/5 ml 50 MCG/ML 5 ml VIAL (250 MCG) ONE (13:49)
[2020-08-28] MEDS ORDERED: Rocuronium 50 mg VIAL 10 mg/ml 5 ml VIAL (50 mg) ONE (13:49)
[2020-08-28] MEDS ORDERED: Propofol 10 MG/ML 20 ML BTL ONE (13:49)
[2020-08-28] MEDS ORDERED: Lidocaine 2% PF 5 ML VIAL ONE (13:49)
[2020-08-28] MEDS ORDERED: Ondansetron 4 mg VIAL 2 MG/ML 2 ml VIAL ONE (13:49)
[2020-08-28] MEDS ORDERED: Midazolam 2 mg/2 ml VIAL 1 mg/ml 2 ml VIAL (2 mg) ONE (13:49)
[2020-08-28] MEDS ORDERED: ROPIVACAINE 5 MG/ML 30 ML BTL (0.5%) ONE (14:00)
[2020-08-28] MEDS ORDERED: Phenylephrine 40 mcg/mL 10mL (400mcg) SYRINGE ONE ×2 (14:25→16:05)
[2020-08-28] MEDS ORDERED: HYDROmorphone 1 MG/1 ML SYRINGE ONE ×2 (15:02→17:22)
[2020-08-28] MEDS ORDERED: Ondansetron ODT 4 mg TAB 4 MG TAB PO PRN (15:16)
[2020-08-28] MEDS ORDERED: diPHENhydraMINE IV 50 MG/ML 1 ml VIAL (BENADRYL) IV PRN ×2 (15:16→17:03)
[2020-08-28] MEDS ORDERED: Magnesium Hydroxide LIQ 30 ML UDC PO PRN (15:16)
[2020-08-28] MEDS ORDERED: Lactulose 30 ml UDC PO PRN (15:16)
[2020-08-28] MEDS ORDERED: Ondansetron 4 mg VIAL 2 MG/ML 2 ml VIAL IV PRN (15:16)
[2020-08-28] MEDS ORDERED: diPHENhydraMINE 25 mg TAB PO PRN (15:16)
[2020-08-28] MEDS ORDERED: Morphine 2 MG/ML SYRINGE IV PRN (15:16)
[2020-08-28] MEDS ORDERED: Acetaminophen IV 1 GM/100ML 100 ML ONE (16:16)
[2020-08-28] MEDS ORDERED: diPHENhydraMINE IV 50 MG/ML 1 ml VIAL (BENADRYL) ONE (17:03)
[2020-08-28] MEDS ORDERED: Naloxone 0.4 mg VIAL 0.4 mg/ml 1 ml VIAL IV PRN ×2 (17:03→17:23)
[2020-08-28] MEDS: HYDROmorphone 1 MG/1 ML SYRINGE IV PRN ×4 (17:28→18:45)
[2020-08-28] MEDS: Lactated Ringers 1000 ml BAG 1,000 ML IV SCH (19:27)
[2020-08-28] MEDS: oxyCODONE/Acetamin 5/325 mg TAB PO PRN (22:17)
[2020-08-28] MEDS: Magnesium Hydroxide LIQ 30 ML UDC PO SCH (22:19)
[2020-08-28] MEDS: Clindamycin 600 MG/D5W BAG 600 MG/50 ML BAG IV SCH (22:20)
[2020-08-29] MEDS: oxyCODONE/Acetamin 5/325 mg TAB PO PRN ×3 (03:27→13:31)
[2020-08-29] MEDS: Clindamycin 600 MG/D5W BAG 600 MG/50 ML BAG IV SCH ×2 (05:09→13:32)
[2020-08-29 06:30] LABS: Hematocrit 29 % (35-47); Hemoglobin 9.5 g/dL (12.0-16.0); Mean Platelet Volume 7.4 fL (7.4-10.4); Platelet Count 235 10^3/uL (150-450)
[2020-08-29 06:43] LABS: BUN/Creatinine Ratio 23.2 (8-20); Calcium 8.1 mg/dL (8.6-10.3); EGFR African American 134.1 (>60); EGFR Non-African American 110.8 (>60); Potassium 3.9 mmol/L (3.5-5.0)
[2020-08-29] MEDS: Lactated Ringers 1000 ml BAG 1,000 ML IV SCH ×2 (07:28→22:03)
[2020-08-29] MEDS ORDERED: NS 0.9% 1000 ml BAG 1,000 ML IV SCH (08:45)
[2020-08-29] MEDS: Magnesium Hydroxide LIQ 30 ML UDC PO SCH ×2 (08:52→20:15)
[2020-08-29] MEDS: Vitamin THERAPEUTIC TAB PO SCH (08:53)
[2020-08-29 15:03] LABS: ABS Basophils 0.1 10^3/ul (0-0.2); ABS Eosinophils 0.1 10^3/ul (0-0.6); ABS Lymphocytes 3.6 10^3/ul (1.0-4.8); ABS Monocytes 1.1 10^3/ul (0-0.8); ABS Neutrophils 6.7 10^3/ul (1.5-7.7); Eosinophil % 1.1 %; Hematocrit 27 % (35-47); Lymphocyte % 31.4 %; Mean Corpuscular HGB Conc 33 g/dL (31-36); Mean Corpuscular Hemoglobin 31 pg (27-31); Mean Corpuscular Volume 93 fL (80-97); Platelet Count 232 10^3/uL (150-450); Red Blood Count 2.93 10^6 /uL (3.70-4.87); Red Cell Distribution Width 14 % (10-15); White Blood Count 11.5 10^3/uL (3.5-10.8)
[2020-08-29] MEDS ORDERED: NS 0.9% 500 ml BAG 500 ML IV ONE (16:58)
[2020-08-29] MEDS ORDERED: Cosyntropin 0.25 MG VIAL IV ONE (18:00)
[2020-08-30 05:53] LABS: ABS Lymphocytes 1.1 10^3/ul (1.0-4.8); ABS Monocytes 0.5 10^3/ul (0-0.8); ABS Neutrophils 10.9 10^3/ul (1.5-7.7); Eosinophil % 0.1 %; Hematocrit 30 % (35-47); Hemoglobin 9.9 g/dL (12.0-16.0); Lymphocyte % 8.8 %; Mean Corpuscular HGB Conc 33 g/dL (31-36); Mean Corpuscular Hemoglobin 31 pg (27-31); Mean Corpuscular Volume 94 fL (80-97); Mean Platelet Volume 7.8 fL (7.4-10.4); Platelet Count 256 10^3/uL (150-450); Red Blood Count 3.21 10^6 /uL (3.70-4.87); Red Cell Distribution Width 15 % (10-15); White Blood Count 12.5 10^3/uL (3.5-10.8)
[2020-08-30 06:18] LABS: BUN/Creatinine Ratio 18.8 (8-20); Calcium 8.3 mg/dL (8.6-10.3); EGFR African American 105.4 (>60); EGFR Non-African American 87.1 (>60); Potassium 4.2 mmol/L (3.5-5.0)
[2020-08-30] MEDS: Magnesium Hydroxide LIQ 30 ML UDC PO SCH ×2 (08:43→20:18)
[2020-08-30] MEDS: Vitamin THERAPEUTIC TAB PO SCH (08:43)
[2020-08-30 15:43] LABS: TSH Ultra Thyroid Stim Horm 0.42 mcIU/mL (0.34-5.60)
[2020-08-30] MEDS ORDERED: Albuterol HFA INHALER 8 gm MDI INH PRN (19:23)
[2020-08-30] MEDS: Mometasone/Formoter 200/5 MDI INH SCH (23:25)
[2020-08-31 04:35] LABS: Hematocrit 29 % (35-47); Hemoglobin 9.6 g/dL (12.0-16.0); Mean Platelet Volume 7.2 fL (7.4-10.4); Platelet Count 282 10^3/uL (150-450)
[2020-08-31] MEDS: Vitamin THERAPEUTIC TAB PO SCH (10:27)
[2020-08-31] MEDS: Magnesium Hydroxide LIQ 30 ML UDC PO SCH (11:05)
[2020-08-31] MEDS: Mometasone/Formoter 200/5 MDI INH SCH (11:06)
[2020-08-31 11:11] VITALS: BP 124/65
[2020-08-31 15:14] LABS: ACTH <5.0 pg/mL
[2020-09-03 15:28] LABS: Renin <0.6 ng/mL/h
== END 2020-08-31 12:45 | disposition home or self-care (01) | DRG 470 ==
LOC: AA 13:02 → INTOOBSV 13:02 → SSU 18:45
PROVIDERS: ADMIT Orthopaedic Surgery Adult Reconstructive Orthopaedic Surgery; ATTEND Orthopaedic Surgery Adult Reconstructive Orthopaedic Surgery

== ENCOUNTER 2021-08-02 09:57 | Observation (INO) ==
[~2021-08-02 09:57] MED LIST changes: +DiMENhydriNATE IV 50 mg/ml 1 ml VIAL IV PUSH PRN; +Naloxone 0.4 mg VIAL 0.4 mg/ml 1 ml VIAL IV PRN; +Phenylephrine IV 10 MG/ML 1 ml VIAL ONE; +Propofol 10 mg/ml 100 ML BTL 0 ML ONE
[2021-08-02] MEDS ORDERED: Clindamycin 900 MG/D5W BAG 900 MG/50 ML BAG IVPB ONE (10:19)
[2021-08-02] MEDS ORDERED: Ropivacaine 5 MG/ML 20 ML VIAL 0.5% (100 MG) ONE (10:50)
[2021-08-02] MEDS ORDERED: Midazolam 2 mg/2 ml VIAL 1 mg/ml 2 ml VIAL (2 mg) ONE ×2 (11:11→15:01)
[2021-08-02] MEDS ORDERED: Propofol 10 MG/ML 20 ML BTL ONE (11:21)
[2021-08-02] MEDS ORDERED: fentaNYL 100 mcg/2 ml 50 MCG/ML VIAL ONE ×4 (11:22→15:27)
[2021-08-02] MEDS ORDERED: Dexamethasone IV 4 MG/ML VIAL 1 ml VIAL ONE (11:26)
[2021-08-02] MEDS ORDERED: Phenylephrine 40 mcg/mL 10mL (400mcg) SYRINGE ONE (11:28)
[2021-08-02] MEDS ORDERED: HYDROmorphone 0.5 MG/0.5 ML SYRINGE ONE ×2 (11:57→12:04)
[2021-08-02] MEDS ORDERED: Lactulose 30 ml UDC PO PRN (12:09)
[2021-08-02] MEDS ORDERED: diPHENhydraMINE IV 50 MG/ML 1 ml VIAL (BENADRYL) IV PRN (12:09)
[2021-08-02] MEDS ORDERED: diPHENhydraMINE 25 mg TAB PO PRN (12:09)
[2021-08-02] MEDS ORDERED: Ondansetron ODT 4 mg TAB 4 MG TAB PO PRN (12:09)
[2021-08-02] MEDS ORDERED: Ondansetron 4 mg VIAL 2 MG/ML 2 ml VIAL IV PRN (12:09)
[2021-08-02] MEDS ORDERED: Magnesium Hydroxide LIQ 30 ML UDC PO PRN (12:09)
[2021-08-02] MEDS ORDERED: Morphine 2 MG/ML SYRINGE IV PRN (12:09)
[2021-08-02] MEDS ORDERED: ASA-APAP-CAFFEINE ES (NF) TAB PO PRN (12:15)
[2021-08-02] MEDS ORDERED: Albuterol HFA INHALER 8 gm MDI INH PRN (12:15)
[2021-08-02] MEDS ORDERED: fentaNYL 250 mcg/5 ml 50 MCG/ML 5 ml VIAL (250 MCG) ONE (12:20)
[2021-08-02] MEDS ORDERED: Ketamine HCL 50 mg/ml 10 ml VIAL (500 MG) ONE (12:24)
[2021-08-02] MEDS ORDERED: ceFAZolin 1 GM ADVAN 1 GM in NS 0.9% 50 ML 50 ML IVPB SCH (13:00)
[2021-08-02] MEDS ORDERED: Ondansetron 4 mg VIAL 2 MG/ML 2 ml VIAL ONE (13:24)
[2021-08-02] MEDS: fentaNYL 100 mcg/2 ml 50 MCG/ML VIAL IV PRN ×5 (14:25→15:31)
[2021-08-02] MEDS ORDERED: ROPIVACAINE 5 MG/ML 30 ML BTL (0.5%) ONE (15:08)
[2021-08-02] MEDS ORDERED: Lidocaine 1% MPF 5 ML VIAL ONE (15:08)
[2021-08-02] MEDS ORDERED: Dexmedetomidine 200 mcg/2 ml 2 ml VIAL (200 mcg) ONE (15:14)
[2021-08-02] MEDS ORDERED: fentaNYL 100 mcg/2 ml 50 MCG/ML VIAL IV PRN (15:26)
[2021-08-02] MEDS: Lactated Ringers 1000 ml BAG 1,000 ML IV SCH (18:53)
[2021-08-02] MEDS: Mometasone/Formoter 200/5 MDI INH SCH (20:00)
[2021-08-02] MEDS: Clindamycin 600 MG/D5W BAG IV SCH (20:01)
[2021-08-02] MEDS: Magnesium Hydroxide LIQ 30 ML UDC PO SCH (21:23)
[2021-08-03] MEDS: Clindamycin 600 MG/D5W BAG IV SCH ×2 (03:50→11:09)
[2021-08-03] MEDS: Lactated Ringers 1000 ml BAG 1,000 ML IV SCH (04:54)
[2021-08-03 06:18] LABS: Hematocrit 33 % (35-47); Hemoglobin 10.9 g/dL (12.0-16.0); Mean Platelet Volume 7.8 fL (7.4-10.4); Platelet Count 265 10^3/uL (150-450)
[2021-08-03 06:34] LABS: Calcium 8.4 mg/dL (8.6-10.3); Potassium 3.9 mmol/L (3.5-5.0); eGFR CKD-EPI 103.1 (>60)
[2021-08-03] MEDS: Mometasone/Formoter 200/5 MDI INH SCH ×2 (08:30→19:24)
[2021-08-03] MEDS: Magnesium Hydroxide LIQ 30 ML UDC PO SCH (08:33)
[2021-08-03] MEDS ORDERED: Vitamin THERAPEUTIC TAB PO SCH (09:00)
[2021-08-03 12:34] VITALS: BP 146/71
== END 2021-08-03 14:50 | disposition home or self-care (01) ==
LOC: INTOOBSV 09:57 → AA 09:57 → SSU 17:08
PROVIDERS: ADMIT Orthopaedic Surgery Adult Reconstructive Orthopaedic Surgery; ATTEND Orthopaedic Surgery Adult Reconstructive Orthopaedic Surgery